=== PATIENT | male | born 1985 | race Two or more races ===

== ENCOUNTER 2019-02-15 19:25 | Emergency (ER) | payer MEDICAID, OTHER ==
--- NOTE | 2019-02-15 20:10 | EDM.PDOC ---
ED HPI GENERAL MEDICAL PROBLEM - General Chief Complaint: General Stated Complaint: CHEST PAIN Time Seen by Provider: 02/15/19 20:00 Source of Information: Reports: Patient History Limitations: Reports: Intoxication - History of Present Illness INITIAL COMMENTS - FREE TEXT/NARRATIVE: 33-year-old , apparently a chronic alcoholic who was just in [place] 2 days ago in the emergency room and discharged. He has been drinking since his discharge and now he is here, it is unknown how he got here. He was out in the lobby waiting for some ride and when it did not show he registered to be seen. He is willing to go to detox. He thinks his heart is racing or going to swallow, however on the monitor is in a sinus rhythm between 90 and 100. Is also been having intermittent abdominal discomfort and thinks he is "turning yellow". 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 Psychiatric History: Reports: Addiction - Past Surgical History HEENT Surgical History: Reports: None Neurological Surgical History: Reports: None Other Neurological Surgeries/Procedures: TBI Social & Family History - Family History Family Medical History: Noncontributory - Tobacco Use Smoking Status *Q: Current Every Day Smoker Years of Tobacco use: 21 Packs/Tins Daily: 0.5 - Caffeine Use Caffeine Use: Reports: Coffee - Alcohol Use Days Per Week of Alcohol Use: 7 Number of Drinks Per Day: 37 Total Drinks Per Week: 259 - Recreational Drug Use Recreational Drug Use: No ED ROS GENERAL - Review of Systems Review Of Systems: See Below Constitutional: Reports: Malaise. Denies: Fever, Chills HEENT: Reports: No Symptoms Respiratory: Denies: Shortness of Breath Cardiovascular: Reports: Chest Pain GI/Abdominal: Reports: Abdominal Pain, Nausea : Reports: No Symptoms Skin: Reports: Change in Color (Concerned that his skin is "turning yellow") Neurological: Reports: Headache ED EXAM, GENERAL - Physical Exam Exam: See Below Exam Limited By: No Limitations General Appearance: Alert, No Apparent Distress Eye Exam: Bilateral Eye: Normal Inspection (No obvious jaundice) Head: Atraumatic Respiratory/Chest: No Respiratory Distress, Lungs Clear Cardiovascular: Regular Rate, Rhythm. No: Tachycardia GI/Abdominal: Normal Bowel Sounds, Soft, Tender (Does react with tenderness to palpation over the upper abdomen, especially on the right side. There may be some enlarged liver) Extremities: No: Pedal Edema Neurological: Alert, Oriented Psychiatric: Normal Affect, Normal Mood Skin Exam: Warm, Dry Course - Vital Signs Last Recorded V/S: Last Vital Signs Temp 97.5 F 02/15/19 19:54 Pulse 101 H 02/15/19 19:54 Resp 16 02/15/19 19:54 BP 135/76 02/15/19 19:54 Pulse Ox 94 L 02/15/19 19:54 - Orders/Labs/Meds Labs: Laboratory Tests 02/15/19 02/15/19 02/15/19 Range/Units 20:13 20:13 20:13 WBC 5.4 (4.5-11.0) K/uL RBC 4.52 (4.30-5.90) M/uL Hgb 14.6 (12.0-15.0) g/dL Hct 44.2 (40.0-54.0) % MCV 98 (80-98) fL MCH 32 H (27-31) pg MCHC 33 (32-36) % Plt Count 277 (150-400) K/uL Neut % (Auto) 62 (36-66) % Lymph % (Auto) 27 (24-44) % [place] % (Auto) 8 H (2-6) % Eos % (Auto) 2 (2-4) % Baso % (Auto) 1 (0-1) % Sodium 144 (140-148) mmol/L Potassium 3.5 L (3.6-5.2) mmol/L Chloride 107 (100-108) mmol/L Carbon Dioxide 24 (21-32) mmol/L Anion Gap 16.5 H (5.0-14.0) mmol/L BUN 5 L D (7-18) mg/dL Creatinine 0.7 L (0.8-1.3) mg/dL Est Cr Clr Drug Dosing 164.53 mL/min Estimated GFR (MDRD) > 60 (>60) Glucose 124 H (74-106) mg/dL Calcium 7.7 L D (8.5-10.1) mg/dL Total Bilirubin 0.2 D (0.2-1.0) mg/dL AST 46 H (15-37) U/L ALT 62 (12-78) U/L Alkaline Phosphatase 78 (46-116) U/L Total Protein 7.6 (6.4-8.2) g/dL Albumin 3.9 (3.4-5.0) g/dL Globulin 3.7 H (2.3-3.5) g/dL Albumin/Globulin Ratio 1.1 L (1.2-2.2) Urine Opiates Screen (NEGATIVE) Ur Oxycodone Screen (NEGATIVE) Urine Methadone Screen (NEGATIVE) Ur Propoxyphene Screen (NEGATIVE) Ur Barbiturates Screen (NEGATIVE) Ur Tricyclics Screen (NEGATIVE) Ur Phencyclidine Scrn (NEGATIVE) Ur Amphetamine Screen (NEGATIVE) U Methamphetamines Scrn (NEGATIVE) Urine MDMA Screen (NEGATIVE) U Benzodiazepines Scrn (NEGATIVE) U Cocaine Metab Screen (NEGATIVE) U Marijuana (THC) Screen (NEGATIVE) Ethyl Alcohol 317 mg/dL 02/15/19 Range/Units 20:18 WBC (4.5-11.0) K/uL RBC (4.30-5.90) M/uL Hgb (12.0-15.0) g/dL Hct (40.0-54.0) % MCV (80-98) fL MCH (27-31) pg MCHC (32-36) % Plt Count (150-400) K/uL Neut % (Auto) (36-66) % Lymph % (Auto) (24-44) % [place] % (Auto) (2-6) % Eos % (Auto) (2-4) % Baso % (Auto) (0-1) % Sodium (140-148) mmol/L Potassium (3.6-5.2) mmol/L Chloride (100-108) mmol/L Carbon Dioxide (21-32) mmol/L Anion Gap (5.0-14.0) mmol/L BUN (7-18) mg/dL Creatinine (0.8-1.3) mg/dL Est Cr Clr Drug Dosing mL/min Estimated GFR (MDRD) (>60) Glucose (74-106) mg/dL Calcium (8.5-10.1) mg/dL Total Bilirubin (0.2-1.0) mg/dL AST (15-37) U/L ALT (12-78) U/L Alkaline Phosphatase (46-116) U/L Total Protein (6.4-8.2) g/dL Albumin (3.4-5.0) g/dL Globulin (2.3-3.5) g/dL Albumin/Globulin Ratio (1.2-2.2) Urine Opiates Screen Negative (NEGATIVE) Ur Oxycodone Screen Negative (NEGATIVE) Urine Methadone Screen Negative (NEGATIVE) Ur Propoxyphene Screen Negative (NEGATIVE) Ur Barbiturates Screen Negative (NEGATIVE) Ur Tricyclics Screen Negative (NEGATIVE) Ur Phencyclidine Scrn Negative (NEGATIVE) Ur Amphetamine Screen Negative (NEGATIVE) U Methamphetamines Scrn Negative (NEGATIVE) Urine MDMA Screen Negative (NEGATIVE) U Benzodiazepines Scrn Negative (NEGATIVE) U Cocaine Metab Screen Negative (NEGATIVE) U Marijuana (THC) Screen Negative (NEGATIVE) Ethyl Alcohol mg/dL - Re-Assessments/Exams Free Text/Narrative Re-Assessment/Exam: 02/15/19 20:28 [place] [facility] was called and they do have a bed for detox if physically stable. CBC, CMP, urine for urine drug screen was obtained. Also on EtOH. 02/15/19 20:47 EtOH is 317, urine drug screen negative, CBC normal and extended chemistry profile was actually reassuring. Liver functions are normal and electrolytes are good. He will be sent to [place] for detox. Departure - Departure Time of Disposition: 21:48 Disposition: DC/Tfer to Other 70 Clinical Impression: Alcohol abuse - Discharge Information Instructions: Alcohol Use Disorder Referrals: PCP,None [Primary Care Provider] - Forms: ED Department Discharge Care Plan Goals: Go to [place] for detox and follow the recommendations for aftercare to avoid further abusing alcohol. Sepsis Event Note - Evaluation Sepsis Screening Result: No Definite Risk - Focused Exam Vital Signs: Vital Signs Temp Pulse Resp BP Pulse Ox 02/15/19 19:54 97.5 F 101 H 16 135/76 94 L 02/15/19 19:52 97.5 F 101 H 16 135/76 94 L Date Exam was Performed: 02/15/19 Time Exam was Performed: 23:34
== END 2019-02-15 21:48 | disposition other institution (70) ==
LOC: JP.ED 19:25
DX: F10.10 Alcohol abuse, uncomplicated (principal); F17.210 Nicotine dependence, cigarettes, uncomplicated; Z88.0 Allergy status to penicillin
CPT/HCPCS: 36415; 80053; 80305-QW; 85025; 99283; 99285; G0480

== ENCOUNTER 2022-03-16 17:40 | Emergency (ER) | payer MEDICAID ==
[2022-03-16] MEDS ORDERED: LORazepam 1 MG Tab PO ONE (18:19)
[2022-03-16] MEDS ORDERED: Non-Formulary Medication 1 Each (Citalopram Hydrobromide [Celexa] 40 MG Tablet) PO SCH (18:30)
[2022-03-16] MEDS ORDERED: OLANZAPINE 20 MG PO SCH (18:30)
[2022-03-16] MEDS: Citalopram 20 MG Tab PO SCH (18:32)
[2022-03-16] MEDS: OLANZapine 5 MG Tab PO SCH (18:32)
[2022-03-16 18:53] LABS: ESTIMATED GFR 118 mL/min (>60)
[2022-03-16 19:17] LABS: CORONAVIRUS COVID-19 NAA NEGATIVE (NEGATIVE)
[2022-03-16] MEDS: Gabapentin 300 MG Cap PO SCH (21:47)
[2022-03-17] MEDS: Gabapentin 300 MG Cap PO SCH ×3 (12:17→14:40)
[2022-03-17] MEDS: Citalopram 20 MG Tab PO SCH (12:17)
[2022-03-17] MEDS: OLANZapine 5 MG Tab PO SCH (12:18)
== END 2022-03-17 15:50 | disposition other institution (70) ==
LOC: JP.ED 17:40
DX: F10.20 Alcohol dependence, uncomplicated (principal); R44.3 Hallucinations, unspecified; R45.851 Suicidal ideations; F17.210 Nicotine dependence, cigarettes, uncomplicated; Z88.0 Allergy status to penicillin; Z20.822 Contact with and (suspected) exposure to COVID-19
CPT/HCPCS: 0241U; 36415; 80053; 80305; 80307; 85025; 99285; A9270